=== PATIENT | male | born 1965 | race Caucasian/White ===

== ENCOUNTER 2019-12-18 20:23 | Emergency (ER) | payer BC ==
--- NOTE | 2019-12-18 21:54 | EDM.PDOC ---
ED HPI GENERAL MEDICAL PROBLEM - General Chief Complaint: Neurological Problem Stated Complaint: SOME MEMORY LOSS Time Seen by Provider: 12/18/19 21:20 Source of Information: Reports: Patient, Family, RN History Limitations: Reports: No Limitations ( is good historian) - History of Present Illness INITIAL COMMENTS - FREE TEXT/NARRATIVE: Darek is a 54 year old that presents to the ED with c/o memory loss that started this afternoon. They had breakfast this am at the [employer] camp and then went to [facility] afterwards. Darek did slip on a rock while crossing the [place] but Cassandra is quite confident that he did not hit his head at all but cannot say definitively that he did not. Darek does not remember leaving [place] or anything afterwards. Cassandra, the patient's , states that Darek drove home from [place], answered a business phone call while driving and talked appropriately, stopped for gas, went in to gas station (in [facility]) to pay for gas, and had to back up the car to leave the gas pump without issues. Cassandra did not noticed anything or have any concerns during the trip home from [place]. Once home, they ate lunch and Darek asked "what are their plans for the afternoon?" a few times. Cassandra thought that was a little weird but just figured he hadn't heard her answer the first couple times. They ended up going boating, Darek water-skied, and he drove the boat while Cassandra water-skied and he pulled the [employer] tubing and docked the boat without issues. Again after boating, was asking "what are the plans?" a few times even though they had talked about going kayaking/ canoeing. They ended up canoeing without issues. Played board games with the [employer] for about 90 minutes. Cassandra didn't notice any issues with his game playing besides that he was quiet while they were playing. Then they decided to go fishing and Darek got his fishing pole and they went out on the boat. According to Cassandra, he brought his old fishing pole and when she q uestioned Darek on why he had his old fishing pole he replied that "what he always fishes with". He does not remember that he had bought a new fishing pole last summer. At that point Cassandra asked him if he is feeling alright and Darek replied that he "feels like he is waking up from a fog". Cassandra drove the boat back to dock and they presented to ED at that time. Onset: Today neck Pain Score (Numeric/FACES): 2 - Related Data Allergies Allergy/AdvReac Type Severity Reaction Status Date / Time No Known Allergies Allergy Verified 12/18/19 20:53 Home Meds: Home Meds Omeprazole Magnesium [Prilosec Otc] 20 mg PO DAILY 12/18/19 [History] Triamcinolone Acetonide [Nasacort] 1 spray NASBOTH DAILY 12/18/19 [History] Past Medical History HEENT History: Reports: Impaired Vision, Other (See Below) Other HEENT History: reading glasses Cardiovascular History: Reports: Other (See Below) Other Cardiovascular History: boarderline hypertensive and high cholesterol Gastrointestinal History: Reports: Other (See Below) Other Gastrointestinal History: acid reflux - Infectious Disease History Infectious Disease History: Reports: Chicken Pox - Past Surgical History HEENT Surgical History: Reports: Naso-Sinus Surgery Neurological Surgical History: Reports: Spinal Fusion, Other (See Below) Other Neurological Surgeries/Procedures: L4-L5 Social & Family History - Tobacco Use Smoking Status *Q: Never Smoker - Caffeine Use Caffeine Use: Reports: Coffee, Soda - Recreational Drug Use Recreational Drug Use: No ED ROS GENERAL - Review of Systems Review Of Systems: See Below Constitutional: Reports: No Symptoms HEENT: Reports: No Symptoms Respiratory: Reports: No Symptoms Cardiovascular: Reports: No Symptoms Endocrine: Reports: No Symptoms GI/Abdominal: Reports: No Symptoms : Reports: No Symptoms Musculoskeletal: Reports: No Symptoms Neurological: Reports: Confusion (to time. ), Other (recent memory loss) Psychiatric: Reports: No Symptoms Immunologic: Reports: No Symptoms - Physical Exam Exam: See Below Exam Limited By: No Limitations General Appearance: Alert, WD/WN, No Apparent Distress Eye Exam: Bilateral Eye: EOMI, Normal Inspection, PERRL Ears: Normal External Exam, Hearing Grossly Normal Nose: Normal Inspection Throat/Mouth: Normal Inspection, Normal Oropharynx Head Exam: Atraumatic, Normocephalic Neck: Normal Inspection, Non-Tender, Full Range of Motion. No: Lymphadenopathy (R), Lymphadenopathy (L) Respiratory/Chest: No Respiratory Distress, Lungs Clear, Normal Breath Sounds, Chest Non-Tender Cardiovascular: Regular Rate, Rhythm, No Murmur GI/Abdominal: Soft, Non-Tender Neuro Exam (Abbreviated): Alert, CN II-XII Intact, Normal Gait, No Motor/Sensory Deficits, Disoriented (thought the year was 2020, knew month and ), Memory Loss Recent Events (since early afternoon) Extremities: Normal Capillary Refill Psychiatric: Normal Affect, Normal Mood Skin Exam: Warm, Dry, Intact Course - Vital Signs Last Recorded V/S: Last Vital Signs Temp 98.4 F 12/18/19 20:52 Pulse 74 12/18/19 22:04 Resp 16 12/18/19 22:04 BP 148/93 H 12/18/19 22:04 Pulse Ox 96 12/18/19 22:04 - Orders/Labs/Meds Labs: Laboratory Tests 12/18/19 12/18/19 12/18/19 Range/Units 21:42 21:42 21:54 WBC 4.7 (4.5-11.0) K/uL RBC 4.67 (4.30-5.90) M/uL Hgb 13.8 (12.0-15.0) g/dL Hct 41.3 (40.0-54.0) % MCV 88 (80-98) fL MCH 30 (27-31) pg MCHC 33 (32-36) % Plt Count 291 (150-400) K/uL Neut % (Auto) 38 (36-66) % Lymph % (Auto) 40 (24-44) % Hubbard % (Auto) 15 H (2-6) % Eos % (Auto) 6 H (2-4) % Baso % (Auto) 1 (0-1) % Sodium 142 (140-148) mmol/L Potassium 3.8 (3.6-5.2) mmol/L Chloride 107 (100-108) mmol/L Carbon Dioxide 28 (21-32) mmol/L Anion Gap 7.2 (5.0-14.0) mmol/L BUN 13 (7-18) mg/dL Creatinine 1.4 H (0.8-1.3) mg/dL Est Cr Clr Drug Dosing 57.00 mL/min Estimated GFR (MDRD) 52 L (>60) Glucose 133 H (74-106) mg/dL Calcium 8.7 (8.5-10.1) mg/dL Total Bilirubin 0.3 (0.2-1.0) mg/dL AST 31 (15-37) U/L ALT 41 (12-78) U/L Alkaline Phosphatase 59 (46-116) U/L Total Protein 6.7 (6.4-8.2) g/dL Albumin 3.5 (3.4-5.0) g/dL Globulin 3.2 (2.3-3.5) g/dL Albumin/Globulin Ratio 1.1 L (1.2-2.2) Urine Color Yellow (YELLOW) Urine Appearance Clear (CLEAR) Urine pH 5.5 (5.0-8.0) Ur Specific [place] 1.020 (1.008-1.030) Urine Protein Negative (NEGATIVE) mg/dL Urine Glucose (UA) Negative (NEGATIVE) mg/dL Urine Ketones Negative (NEGATIVE) mg/dL Urine Occult Blood Negative (NEGATIVE) Urine Nitrite Negative (NEGATIVE) Urine Bilirubin Negative (NEGATIVE) Urine Urobilinogen 0.2 (0.2-1.0) EU/dL Ur Leukocyte Esterase Negative (NEGATIVE) Urine RBC 0-5 (0-5) Urine WBC Not seen (0-5) Ur Epithelial Cells Not seen Amorphous Sediment Not seen Urine Bacteria Not seen Urine Mucus Not seen Urine Opiates Screen (NEGATIVE) Ur Oxycodone Screen (NEGATIVE) Urine Methadone Screen (NEGATIVE) Ur Propoxyphene Screen (NEGATIVE) Ur Barbiturates Screen (NEGATIVE) Ur Tricyclics Screen (NEGATIVE) Ur Phencyclidine Scrn (NEGATIVE) Ur Amphetamine Screen (NEGATIVE) U Methamphetamines Scrn (NEGATIVE) Urine MDMA Screen (NEGATIVE) U Benzodiazepines Scrn (NEGATIVE) U Cocaine Metab Screen (NEGATIVE) U Marijuana (THC) Screen (NEGATIVE) 12/18/19 Range/Units 21:54 WBC (4.5-11.0) K/uL RBC (4.30-5.90) M/uL Hgb (12.0-15.0) g/dL Hct (40.0-54.0) % MCV (80-98) fL MCH (27-31) pg MCHC (32-36) % Plt Count (150-400) K/uL Neut % (Auto) (36-66) % Lymph % (Auto) (24-44) % Hubbard % (Auto) (2-6) % Eos % (Auto) (2-4) % Baso % (Auto) (0-1) % Sodium (140-148) mmol/L Potassium (3.6-5.2) mmol/L Chloride (100-108) mmol/L Carbon Dioxide (21-32) mmol/L Anion Gap (5.0-14.0) mmol/L BUN (7-18) mg/dL Creatinine (0.8-1.3) mg/dL Est Cr Clr Drug Dosing mL/min Estimated GFR (MDRD) (>60) Glucose (74-106) mg/dL Calcium (8.5-10.1) mg/dL Total Bilirubin (0.2-1.0) mg/dL AST (15-37) U/L ALT (12-78) U/L Alkaline Phosphatase (46-116) U/L Total Protein (6.4-8.2) g/dL Albumin (3.4-5.0) g/dL Globulin (2.3-3.5) g/dL Albumin/Globulin Ratio (1.2-2.2) Urine Color (YELLOW) Urine Appearance (CLEAR) Urine pH (5.0-8.0) Ur Specific [place] (1.008-1.030) Urine Protein (NEGATIVE) mg/dL Urine Glucose (UA) (NEGATIVE) mg/dL Urine Ketones (NEGATIVE) mg/dL Urine Occult Blood (NEGATIVE) Urine Nitrite (NEGATIVE) Urine Bilirubin (NEGATIVE) Urine Urobilinogen (0.2-1.0) EU/dL Ur Leukocyte Esterase (NEGATIVE) Urine RBC (0-5) Urine WBC (0-5) Ur Epithelial Cells Amorphous Sediment Urine Bacteria Urine Mucus Urine Opiates Screen Negative (NEGATIVE) Ur Oxycodone Screen Negative (NEGATIVE) Urine Methadone Screen Negative (NEGATIVE) Ur Propoxyphene Screen Negative (NEGATIVE) Ur Barbiturates Screen Negative (NEGATIVE) Ur Tricyclics Screen Negative (NEGATIVE) Ur Phencyclidine Scrn Negative (NEGATIVE) Ur Amphetamine Screen Negative (NEGATIVE) U Methamphetamines Scrn Negative (NEGATIVE) Urine MDMA Screen Negative (NEGATIVE) U Benzodiazepines Scrn Negative (NEGATIVE) U Cocaine Metab Screen Negative (NEGATIVE) U Marijuana (THC) Screen Negative (NEGATIVE) Meds: Medications Discontinued Medications Generic Name Dose Route Start Last Admin Trade Name Freq PRN Reason Stop Dose Admin Sodium Chloride 1,000 mls @ 999 mls/hr 12/18/19 22:07 12/18/19 22:21 Normal Saline IV 12/18/19 23:07 999 mls/hr .BOLUS ONE Administration - Re-Assessments/Exams Free Text/Narrative Re-Assessment/Exam: 12/18/19 23:14 re-evaluated patient and he is still experiencing memory loss from this afternoon to current time. Does not remember coming to the ED. Explained to patient that CT and labs were reassuring and that he may never regain his memory from the afternoon events. Informed patient that this form of amnesia generally resolves in 24 hours. 12/19/19 00:46 Departure - Departure Time of Disposition: 23:16 Disposition: Home, Self-Care 01 Clinical Impression: Transient global amnesia, Dehydration - Discharge Information *PRESCRIPTION DRUG MONITORING PROGRAM REVIEWED*: No *COPY OF PRESCRIPTION DRUG MONITORING REPORT IN PATIENT ZAC: No Instructions: Transient Global Amnesia Referrals: PCP,None [Primary Care Provider] - Forms: ED Department Discharge Additional Instructions: Your labs and Head CT were reassuring. You are most likely experiencing a transient global amnesia which should resolve spontaneously on it's own within 24 hours. The cause of these episodes are unknown but have been theorized to be related to stress. If your are not better by noon tomorrow, return for a re evaluation. No driving vehicles or operating machinery until memory returns. Darek will need constant supervision until memory returns to ensure safety. Call or return earlier if worsening of symptoms, such as severe headache, vision changes, changes in motor control, fever, nausea, vomiting, chest pains or any other concerns. Sepsis Event Note (ED) - Evaluation Sepsis Screening Result: No Definite Risk - Focused Exam Vital Signs: Vital Signs Temp Pulse Resp BP Pulse Ox 12/18/19 22:04 74 16 148/93 H 96 12/18/19 21:34 80 134/93 H 96 12/18/19 20:52 98.4 F 79 15 141/86 H 97 12/18/19 20:50 98.4 F 79 15 141/86 H 97
[2019-12-18] MEDS ORDERED: Sodium Chloride 0.9% 1,000 ML IV ONE (22:07)
--- NOTE | 2019-12-18 22:15 | CRLCT ---
INDICATION: Sudden onset amnesia TECHNIQUE: CT Head without i.v. contrast. COMPARISON: None FINDINGS: CSF space: The ventricles are normal for age. Brain: No evidence of mass, acute infarction or hemorrhage is seen. No mass-effect or midline shift is seen. The brain parenchyma is otherwise normal in appearance with preservation of the chao-white matter junction. Calvarium: The visualized paranasal sinuses are well aerated. The mastoid air cells are clear. The visualized orbits are grossly unremarkable. The calvarium is unremarkable in appearance with no fractures identified. IMPRESSION: 1. No evidence of acute infarction, intracranial hemorrhage, or mass-effect seen. Please note that all CT scans at this facility use dose modulation, iterative reconstruction, and/or weight-based dosing when appropriate to reduce radiation dose to as low as reasonably achievable. Dictated by: Viktor Collins MD @ 12/18/2019 22:15:21 (Electronically Signed)
== END 2019-12-18 23:44 | disposition home or self-care (01) ==
LOC: JP.ED 20:23
DX: G45.4 Transient global amnesia (principal); E86.0 Dehydration; K21.9 Gastro-esophageal reflux disease without esophagitis; Z79.899 Other long term (current) drug therapy
CPT/HCPCS: 36415; 70450; 80053; 80305; 81001; 85025; 96360; 99284; J7030; 99283